=== PATIENT | female | born 1965 | race Caucasian/White ===

== ENCOUNTER 2020-08-25 09:22 | Emergency (ER) | payer OTHER, MEDICAID ==
[~2020-08-25] VITALS: Ht 162.6 cm; Wt 55.0 kg
[2020-08-25] MEDS ORDERED: LORAZEPAM 2MG/ML CPJ IV ONE (09:30)
[2020-08-25] MEDS ORDERED: LABETALOL 5MG/ML SYR 20 MG/4 ML SYRINGE IV ONE (10:00)
[2020-08-25 11:14] LABS: CLARITY URINE CLEAR (CLEAR); COLOR URINE YELLOW (YELLOW); KETONES URINE NEGATIVE (NEGATIVE); LEUKOCYTE ESTERASE URINE NEGATIVE (NEGATIVE); NITRITE URINE NEGATIVE (NEGATIVE); OCCULT BLOOD URINE TRACE (NEGATIVE); PROTEIN URINE 3+ (NEGATIVE); SPECIFIC GRAVITY URINE 1.022 (1.005-1.030); UROBILINOGEN URINE 0.2 E.U./dL (0.2-1.0)
[2020-08-25 11:31] LABS: CHLORIDE 106 mEq/L (98-107); PROTHROMBIN TIME 10.6 sec (9.6-11.0)
[2020-08-25 11:32] LABS: HEMATOCRIT. 39.2 % (36.0-48.0); HEMOGLOBIN. 12.7 g/dL (12.0-16.0); MEAN CORPUSCULAR HEMOGLOBIN 28.6 pg (28.0-32.0); MEAN CORPUSCULAR VOLUME 88.2 fL (81.0-99.0); MEAN PLATELET VOLUME 8.7 fl (7.4-10.4); PLATELET 138 x1000/uL (130-400); RED BLOOD CELL COUNT 4.45 mill/uL (4.2-5.4); RED CELL DISTRIBUTION WIDTH 18.1 % (11.6-14.6)
[2020-08-25 11:37] LABS: ETHANOL BLOOD < 10 mg/dL
[2020-08-25 11:40] LABS: LDL CHOLESTEROL 116 mg/dL (5-100)
[2020-08-25] MEDS ORDERED: CLONIDINE 0.2MG TABLET PO ONE (11:45)
[2020-08-25 12:06] LABS: *AMPHETAMINES SCREEN URINE NEGATIVE (NEGATIVE); *BARBITURATES SCREEN URINE NEGATIVE (NEGATIVE)
[2020-08-25 12:07] LABS: *BENZODIAZEPINES SCREEN URINE NEGATIVE (NEGATIVE); *COCAINE SCREEN URINE NEGATIVE (NEGATIVE); CANNABINOID URINE SCREEN NEGATIVE (NEGATIVE); OPIATES URINE SCREEN NEGATIVE (NEGATIVE); PHENCYCLIDINE URINE SCREEN NEGATIVE (NEGATIVE)
[2020-08-25 12:09] LABS: METHADONE URINE SCREEN NEGATIVE (NEGATIVE)
[2020-08-25 12:15] LABS: NUCLEATED RED BLOOD CELLS 1 /100 WBC; PLATELET ESTIMATE NORMAL
[2020-08-25] MEDS ORDERED: LEVETIRACETAM 500 MG in SODIUM CHLORIDE 0.9% 100 ML IV STA (13:24)
[2020-08-25] MEDS ORDERED: ASPIRIN 325MG EC TABLET PO ONE (13:30)
[2020-08-25] MEDS ORDERED: IOHEXOL-350 100 ML BOTTLE ONE (15:33)
[2020-08-25] MEDS ORDERED: LEVETIRACETAM 1,500 MG in SODIUM CHLORIDE 0.9% 100 ML IV SCH (16:15)
[2020-08-25] MEDS ORDERED: LEVETIRACETAM 500MG PREMIX 100 ML IV ONE ×2 (16:15)
[2020-08-25] MEDS ORDERED: LEVETIRACETAM 1,500 MG in SODIUM CHLORIDE 0.9% 100 ML IV NR (16:30)
[2020-08-25 18:33] VITALS: BP 139/79
== END 2020-08-25 18:55 | disposition short-term general hospital (02) ==
LOC: ER 09:22 → EDBEDREQSVC 13:13 → EDBEDREQ 13:13 → EDBEDREQTM 13:13 → CANBEDREQ 17:20 → ER 18:55
DX: R56.9 Unspecified convulsions (principal); I10 Essential (primary) hypertension
CPT/HCPCS: 36415; 70450; 70496; 70498; 71045; 80053; 80305; 80320; 81003; 81025; 82140; 82962; 83721; 84443; 84484; 85025; 85610; 86850; 86900; 86901; 93005; 96365; 96367; 96375; 99285; J1953; J2060; J3490; J7050; Q9967; G0480